=== PATIENT | male | born 1965 | race Caucasian/White ===

== ENCOUNTER 2024-01-08 07:29 | Outpatient (CLI) | payer OTHER | END 2024-01-08 07:34 | disposition home or self-care (01) | LOC: SONOGRAMA 07:29 | PROVIDERS: ATTEND Pathology Anatomic Pathology | DX: D34 Benign neoplasm of thyroid gland (principal); E07.89 Other specified disorders of thyroid; E04.2 Nontoxic multinodular goiter ==